=== PATIENT | female | born 1970 | race Caucasian/White ===

== ENCOUNTER 2019-04-05 06:05 | Day surgery (SDC) | payer BC ==
[2019-04-02 10:13] LABS: HEMOGLOBIN 16.3 g/dL (12-16); MCH 36.3 pg (26.0-34.0); MCHC 36.2 g/dL (31.0-37.0); MCV 100.2 fL (80.0-100.0); MEAN PLATELET VOLUME 11.3 fL (7.4-10.4); RBC 4.49 10x6/uL (4.00-5.40); WBC 11.8 10x3/uL (4.8-10.8)
[2019-04-02 10:22] LABS: CALC OSMOLALITY 273 mosm/kg (275-300); CALCIUM 9.4 mg/dL (8.5-10.1); CARBON DIOXIDE 26.9 mmol/L (21.0-32.0); CHLORIDE - SERUM 100 mmol/L (98-107); CREATININE - SERUM 0.6 mg/dL (0.6-1.3); GLUCOSE 89 mg/dL (74-106); POTASSIUM - SERUM 4.7 mmol/L (3.5-5.1); SODIUM 137 mmol/L (136-145); UREA NITROGEN 16 mg/dL (7-18); eGFR NON AFRICAN AMERICAN > 90 mL/min (90-120)
[2019-04-02 10:26] LABS: APTT 30.7 SECONDS (22.8-39.4); INR 1.32 (0.85-1.17); PROTIME 15.8 SECONDS (11.6-15.0)
[~2019-04-05] VITALS: Ht 165.1 cm; Wt 88.5 kg
[~2019-04-05 06:05] MED LIST: BAYER CHEWABLE81 MG PO; COUMADIN10 MG PO; HYDROCODON-ACE1 EAC7 PO; LISINOPRIL-HCT1 EAC8 PO; METOPROLOL TART50 MG PO; NEURONTIN 400400 MG PO; NORVASC5 MG PO; ROBAXIN500 MG PO; VESICARE5 MG PO; ZOCOR20 MG PO
[2019-04-05 06:46] VITALS: BP 115/59; Ht 165.1 cm; Wt 88.5 kg
[2019-04-05] MEDS ORDERED: HYDROCODON-ACE1 EAC7 PO (09:02)
--- NOTE | 2019-04-05 09:17 | NUR ---
SCOPE PATCH BEHIND RT EAR ON ADMIT
--- NOTE | 2019-04-05 11:04 | NUR ---
1035 VOIDED IN BATHROOM.
--- NOTE | 2019-04-05 11:59 | NUR ---
1145 IV REMOVED 1200 PT DISCHARGED TO HOME
== END 2019-04-05 12:00 | disposition home or self-care (01) ==
LOC: D.OPS 06:05 → D.PAN 08:00 → D.OPS 08:00
PROVIDERS: Anesthesiology; ATTEND Surgery
DX: K43.6 Other and unspecified ventral hernia with obstruction, without gangrene (principal); Z01.812 Encounter for preprocedural laboratory examination